=== PATIENT | female | born 1995 ===

== ENCOUNTER 2018-01-06 12:38 | Emergency (ER) | payer OTHER ==
[2018-01-06 13:14] VITALS: BP 130/78
--- NOTE | 2018-01-06 13:45 | UC ---
Respiratory Complaint HPI - HPI Summary HPI Summary: Pt c/o nasal congestion, cough, "raspy voice" X 10 days. 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 - History of Current Complaint Chief Complaint: UCGeneralIllness Stated Complaint: COUGH/STUFFY NOSE Time Seen by Provider: 01/06/18 13:35 Hx Obtained From: Patient Hx Last Menstrual Period: 12/15/17 ?: No Onset/Duration: Gradual Onset, Lasting Days, Still Present Timing: Constant Severity Initially: Mild Severity Currently: Mild Pain Intensity: 0 Character: Cough: Productive Aggravating Factors: Exertion, Deep Breaths, Recumbent Position Alleviating Factors: Nothing Associated Signs And Symptoms: Positive: Chills, URI, Nasal Congestion, Hoarseness - Risk Factors Pulmonary Embolism Risk Factors: Negative Cardiac Risk Factors: Negative Pseudomonas Risk Factors: Negative Tuberculosis Risk Factors: Negative - Allergies/Home Medications Allergies/Adverse Reactions: Allergies Allergy/AdvReac Type Severity Reaction Status Date / Time No Known Allergies Allergy Verified 01/06/18 13:14 PMH/Surg Hx/FS Hx/Imm Hx Previously Healthy: Yes - Surgical History Surgical History: None - Family History Known Family History: Positive: Cardiac Disease - Social History Occupation: Student Lives: Dormitory/Roommates Alcohol Use: None Substance Use Type: None Smoking Status (MU): Never Smoked Tobacco Have You Smoked in the Last Year: No Review of Systems Constitutional: Fatigue Skin: Negative Eyes: Negative ENT: Sore Throat, Sinus Congestion Respiratory: Cough Cardiovascular: Negative Gastrointestinal: Negative Genitourinary: Negative Motor: Negative Neurovascular: Negative Musculoskeletal: Negative Neurological: Negative Psychological: Negative Is Patient Immunocompromised?: No All Other Systems Reviewed And Are Negative: Yes Physical Exam Triage Information Reviewed: Yes Appearance: Ill-Appearing, Obese Vital Signs: Initial Vital Signs Temp 98.2 F 01/06/18 13:06 Pulse 62 01/06/18 13:06 Resp 20 01/06/18 13:06 BP 130/78 01/06/18 13:06 Pulse Ox 99 01/06/18 13:06 Vital Signs Reviewed: Yes Eye Exam: Normal ENT Exam: Other ENT: Positive: Nasal congestion, Other - PND Dental Exam: Normal Neck exam: Normal Respiratory Exam: Normal Cardiovascular Exam: Normal Musculoskeletal Exam: Normal Neurological Exam: Normal Psychological Exam: Normal Skin Exam: Normal UC Diagnostic Evaluation - Laboratory O2 Sat by Pulse Oximetry: 99 Respiratory Course/Dx - Differential Dx/Diagnosis Differential Diagnosis/HQI/PQRI: Bronchitis, Other - URI Provider Diagnoses: Bronchitis Discharge - Sign-Out/Discharge Documenting (check all that apply): Discharge/Admit/Transfer - Discharge Plan Condition: Stable Disposition: HOME Prescriptions: Azithromycin TAB* [Zithromax TAB (Z-AMENA) 250 mg #6 tabs] 2 tab PO .TODAY, THEN 1 DAILY #1 amena Benzonatate CAP* [Tessalon 100 MG CAP*] 100 mg PO Q8H PRN #30 cap PRN Reason: Cough Fexofenadine/Pseudoephedrine [Clara-D 24 Hour Tablet] 1 each PO DAILY #7 tab predniSONE TAB* [Deltasone TAB*] 30 mg PO DAILY #12 tab Patient Education Materials: Acute Bronchitis (ED) Referrals: [facility] [place] [facility] [Outside] Non Staff,Doctor [Primary Care Provider] - Additional Instructions: Please follow up with your PCP or return to clinic as needed. - Billing Disposition and Condition Condition: STABLE Disposition: HOME
== END 2018-01-06 13:54 | disposition home or self-care (01) ==
LOC: UCCORT 12:38
DX: J40 Bronchitis, not specified as acute or chronic (principal)
CPT/HCPCS: 99202; G0463

== ENCOUNTER 2018-06-30 15:14 | Emergency (ER) | payer OTHER ==
[2018-06-30 15:57] VITALS: BP 150/80
--- NOTE | 2018-06-30 16:32 | RAD ---
HISTORY: cough fever COMPARISONS: None VIEWS: 4: Frontal dual-energy and lateral views of the chest. FINDINGS: CARDIOMEDIASTINAL SILHOUETTE: The cardiomediastinal silhouette is normal. DHARMESH: The dharmesh are normal. PLEURA: The costophrenic angles are sharp. No pleural abnormalities are noted. LUNG PARENCHYMA: There is patchy alveolar opacification of the left lower lung and to lesser extent of the right lower lung. ABDOMEN: The upper abdomen is clear. There is no subphrenic gas. BONES AND SOFT TISSUES: No bone or soft tissue abnormalities are noted. OTHER: None. IMPRESSION: LEFT GREATER THAN RIGHT PATCHY BIBASILAR CONSOLIDATION.
--- NOTE | 2018-06-30 16:44 | ED ---
Respiratory - HPI Summary HPI Summary: 23 yr old female with the complaint of chest pain, SOB. The patient complains of Cough, fever, chills, pain when breaths in. She traveled to [place] by care over a week ago and returned from [place] about 6 days ago by Car. She developed cough, pain with breathing last week late, and over the weekend reported fever of 101 on Saturday. She has myalgias as well. She thought she had the flu. What made her come here today is that when she was walking to class outside she had to stop due to having severe pain in her chest, and shortness of breath. She denies control, smoking and leg swelling. - History of Current Complaint Chief Complaint: UCGeneralIllness Stated Complaint: COUGH,FEVER Time Seen by Provider: 06/30/18 16:03 Pain Intensity: 0 - Allergy/Home Medications Allergies/Adverse Reactions: Allergies Allergy/AdvReac Type Severity Reaction Status Date / Time No Known Allergies Allergy Verified 06/30/18 15:57 Home Medications: Home Medications NK [No Home Medications Reported] 06/30/18 [History Confirmed 06/30/18] PMH/Surg Hx/FS Hx/Imm Hx Infectious Disease History: No Infectious Disease History: Denies: Traveled Outside the [place] in Last 30 Days - Family History Known Family History: Positive: Cardiac Disease - Social History Occupation: Student Lives: With Family Alcohol Use: Rare Substance Use Type: Reports: None Smoking Status (MU): Never Smoked Tobacco Have You Smoked in the Last Year: No Review of Systems Positive: Fever, Chills, Fatigue Positive: Chest Pain Positive: Shortness Of Breath, Cough Positive: Myalgia All Other Systems Reviewed And Are Negative: Yes Physical Exam Triage Information Reviewed: Yes Vital Signs On Initial Exam: Initial Vitals Temp Pulse Resp BP Pulse Ox 97.8 F 90 17 150/80 99 06/30/18 15:51 06/30/18 15:51 06/30/18 15:51 06/30/18 15:51 06/30/18 15:51 Vital Signs Reviewed: Yes Appearance: Positive: Obese Skin: Positive: Warm, Skin Color Reflects Adequate Perfusion Head/Face: Positive: Normal Head/Face Inspection Eyes: Positive: EOMI ENT: Positive: Pharynx normal, TMs normal Respiratory/Lung Sounds: Positive: Decreased Breath Sounds - bases. Negative: Stridor, Wheezes Cardiovascular: Positive: RRR. Negative: Murmur Abdomen Description: Negative: Distended Musculoskeletal: Positive: Strength/ROM Intact. Negative: Edema Left - nontender, Edema Right - non tender Neurological: Positive: Sensory/Motor Intact, Alert, Oriented to Person Place, Time, CN Intact II-III Psychiatric: Positive: Normal Diagnostics - Vital Signs Vital Signs Temp Pulse Resp BP Pulse Ox 06/30/18 15:51 97.8 F 90 17 150/80 99 - Laboratory Lab Results: Lab Results 06/30/18 Range/Units 16:19 Influenza A (Rapid) Negative (Negative) Influenza B (Rapid) Negative (Negative) Lab Statement: Any lab studies that have been ordered have been reviewed, and results considered in the medical decision making process. - Radiology chest Xray Interpretation: Positive (See Comments) - bibasilar patchy consolidations Radiology Interpretation Completed By: Radiologist Disposition - Course Course Of Treatment: Risk of multiple PE discussed with the patient given her travel history by car. She is obese as well which is another risk factor. She was offered and advised to go by ambulance to the ER. She signed out AMA refusing this risk of PE, , disability, pneumonia, sepsis. - Diagnoses Provider Diagnoses: Chest pain, pleuritic, Consolidation lung, Shortness of breath, Hypertension Discharge - Sign-Out/Discharge Documenting (check all that apply): Patient Departure All imaging exams completed and their final reports reviewed: Yes - Discharge Plan Condition: Good Disposition: AGAINST MEDICAL ADVICE Referrals: No Primary Care Phys,NOPCP [Primary Care Provider] - - Billing Disposition and Condition Condition: GOOD Disposition: Against Medical Advice
== END 2018-06-30 16:43 | disposition left against medical advice (07) ==
LOC: UCCORT 15:14
DX: R07.81 Pleurodynia (principal); J18.1 Lobar pneumonia, unspecified organism; R06.02 Shortness of breath; I10 Essential (primary) hypertension
CPT/HCPCS: 71046; 99212; G0463

== ENCOUNTER 2019-07-28 11:44 | Emergency (ER) | payer OTHER ==
[2019-07-28 12:13] VITALS: BP 129/86
--- NOTE | 2019-07-28 13:21 | UC ---
Throat Pain/Nasal Sandeep HPI - HPI Summary HPI Summary: Pt presents with c/o nasal congestion, sinus pressure, cough, and low back pain . Pt sates she has had a"head cold" X 2 months" and had pneumonia last year. Pt also c/o low back pain with no known injury. - History of Current Complaint Chief Complaint: UCBackPain Stated Complaint: COUGH,CONGESTION,BACK PAIN Time Seen by Provider: 07/28/19 13:14 Hx Obtained From: Patient Hx Last Menstrual Period: 07/08/19 ?: No Onset/Duration: Gradual Onset, Lasting Weeks, Still Present Severity: Moderate Pain Intensity: 7 Cough: Nonproductive Associated Signs & Symptoms: Positive: Sinus Discomfort, Nasal Discharge - Epiglottits Risk Factors Epiglottis Risk Factors: Negative - Allergies/Home Medications Allergies/Adverse Reactions: Allergies Allergy/AdvReac Type Severity Reaction Status Date / Time No Known Allergies Allergy Verified 07/28/19 12:05 Home Medications: Home Medications D-Methorphan/PE/Acetaminophen [Daytime Cold-Flu Relief Sftgl] 2 tab PO ONCE [History Confirmed 07/28/19] Ibuprofen TAB* [Advil TAB*] 2 tab PO ONCE 07/28/19 [History Confirmed 07/28/19] PMH/Surg Hx/FS Hx/Imm Hx Previously Healthy: Yes Respiratory History: Pneumonia - Surgical History Surgical History: None - Family History Known Family History: Positive: Cardiac Disease - Social History Occupation: Student - [employer] Lives: Dormitory/Roommates Alcohol Use: Rare Substance Use Type: None Smoking Status (MU): Never Smoked Tobacco Have You Smoked in the Last Year: No - Immunization History Vaccination Up to Date: Yes Review of Systems All Other Systems Reviewed And Are Negative: Yes Constitutional: Positive: Fatigue Skin: Positive: Negative Eyes: Positive: Negative ENT: Positive: Nasal Discharge, Sinus Congestion, Sinus Pain/Tenderness Respiratory: Positive: Cough Cardiovascular: Positive: Negative Gastrointestinal: Positive: Negative Genitourinary: Positive: Negative Motor: Positive: Negative Neurovascular: Positive: Negative Musculoskeletal: Positive: Myalgia Neurological: Positive: Negative Psychological: Positive: Negative Is Patient Immunocompromised?: No Physical Exam Triage Information Reviewed: Yes Appearance: Well-Appearing, Obese Vital Signs: Initial Vital Signs Temp 97.5 F 07/28/19 12:06 Pulse 75 07/28/19 12:06 Resp 18 11/19/19 12:06 BP 129/86 07/28/19 12:06 Pulse Ox 98 07/28/19 12:06 Vital Signs Reviewed: Yes Eye Exam: Normal ENT: Positive: Sinus tenderness Dental Exam: Normal Neck exam: Normal Respiratory Exam: Normal Respiratory: Positive: Normal breath sounds Cardiovascular Exam: Normal Musculoskeletal Exam: Normal Neurological Exam: Normal Psychological Exam: Normal Skin Exam: Normal Diagnostics - Radiology No standard instances Radiology Interpretation Completed By: Radiologist - Tax Collector: Ghislaine Rosales S, ([id number]) Electorate Officer: EMEKA (JULIANCE) Report Date: 2018 13:37:00 Report Status: Final ======= Start of Report Content Patient Name: ZULEIKA ESCALANTE Medical Record#: [id number] Ordering Physician: Fawn Solis NP Acct.#: [id number] : 1995 Age: 24 Sex: F Location: [facility] Exam Date: 07/28/19 1321 ADM Status: REG ER Order Information: CHEST PA LAT 2 VWS Accession Number: [id number] CPT: 57270 Indication: Cough, back pain. 2 views of the chest demonstrate no mediastinal shift. Heart is of normal size and configuration. Lungs are clear. IMPRESSION: No active cardiopulmonary disease is noted. <Electronically signed by Ghislaine Rosales MD in OV> [id number] Dictated By: Ghislaine Rosales MD Dictated Date/Time: 07/28/191332 Transcribed Date/Time: 07/28/191332 Copy to: CC:Fawn Solis MUSEUM REGISTRAR; No Primary Care Phys,NOPCP ; Kurtis Brar MD Imaging - [facility] [place] [facility] - [facility] [address] [place] [id number] [place] [id number] ph ([phone]) ph ([phone]) ph ([phone]) End of Report Content Throat Pain/Nasal Course/Dx - Differential Dx/Diagnosis Differential Diagnosis/HQI/PQRI: Influenza, Sinusitis, URI Provider Diagnosis: Low back pain, Allergic rhinitis Discharge ED - Sign-Out/Discharge Documenting (check all that apply): Patient Departure All imaging exams completed and their final reports reviewed: No Studies - Discharge Plan Condition: Stable Disposition: HOME Prescriptions: Cetirizine* [ZyrTEC 10 MG TAB*] 10 mg PO DAILY #20 tab Oxymetazoline 0.05% NASAL SPR* [Afrin 0.05% NASAL SPRAY*] 1 spray NASAL Q12H PRN 7 Days #1 btl PRN Reason: Congestion Patient Education Materials: Allergic Rhinitis (ED), Low Back Strain (ED), Lower Back Exercises (ED) Referrals: No Primary Care Phys,NOPCP [Primary Care Provider] - [facility] [place]Outside] - If Needed Additional Instructions: Please follow up with your PCP as needed. - Billing Disposition and Condition Condition: STABLE Disposition: Home
== END 2019-07-28 14:02 | disposition home or self-care (01) ==
LOC: UCCORT 11:44
DX: M54.5 Low back pain (principal); J30.9 Allergic rhinitis, unspecified
CPT/HCPCS: 71046; 99212; G0463